=== PATIENT | female | born 1940 | race Caucasian/White ===

== ENCOUNTER 2018-12-24 10:59 | Inpatient (IN) | payer MEDICARE, BC ==
[~2018-12-24] VITALS: Ht 160 cm; Wt 47.8 kg
[2018-12-24] MEDS ORDERED: HYDROMORPHONE INJ 0.5 MG/0.5 ML SYRINGE ONE ×2 (11:25→13:19)
[2018-12-24] MEDS ORDERED: ONDANSETRON HCL/PF 4 MG/2 ML VIAL ONE (11:25)
[2018-12-24] MEDS ORDERED: HYDROMORPHONE INJ 2 MG/ML DISP.SYRIN IV ONE (11:30)
[2018-12-24] MEDS ORDERED: ONDANSETRON HCL/PF 4 MG/2 ML VIAL IVP ONE (11:30)
[2018-12-24] MEDS ORDERED: IV NS 0.9% 500 ML BAG IV ONE (11:30)
--- NOTE | 2018-12-24 11:30 | NUR ---
TIA, FROM HOME, GLF, L LEG SHORTENING, L HIP PAIN 08/27. PT AAOX3, VSS. DENIES CP, SOB, DIZZINESS, N/V, WEAKNESS @ THIS TIME. PLACED ON STRIP PRESSER. DR. ACKERMAN @ BS FOR EVAL. WILL CONT TO MONITOR.
[2018-12-24 11:38] LABS: BASOPHILS % (AUTO) 0.1 % (0.0-2.0); HEMATOCRIT 43 % (33-45); HEMOGLOBIN 14.1 g/dL (11.5-14.8); LYMPHOCYTES # (AUTO) 0.5 /CMM (0.8-4.8); LYMPHOCYTES % (AUTO) 4.2 % (20.0-44.0); MEAN CORPUSCULAR HGB CONC 33 g/dl (31.0-36.0); MEAN CORPUSCULAR VOLUME 94 fL (82-100); MONOCYTES # (AUTO) 0.5 /CMM (0.1-1.30); MONOCYTES % (AUTO) 3.7 % (2.0-12.0); NEUTROPHILS # (AUTO) 11.7 /CMM (1.8-8.9); PLATELET COUNT (AUTO) 157 /CMM (150-450); RED BLOOD CELL COUNT(AUTO) 4.56 MIL/uL (4.0-5.2); WHITE BLOOD COUNT (AUTO) 12.7 K/uL (4.3-11.0)
[2018-12-24 11:44] LABS: CALCIUM, SERUM 9.2 mg/dL (8.5-10.1); CARBON DIOXIDE 29 mmol/L (21-32); CHLORIDE 104 mmol/L (98-107); CREATININE 0.6 mg/dL (0.6-1.3); GLUCOSE 117 mg/dL (74-106); POTASSIUM 3.8 mmol/L (3.5-5.1); SODIUM SERUM 140 mmol/L (136-145); UREA NITROGEN, BLOOD 18 mg/dL (7-18)
[2018-12-24 11:50] LABS: ALANINE AMINOTRANSFERASE 41 U/L (12-78); ALBUMIN 3.4 g/dL (3.4-5.0); ALKALINE PHOSPHATASE 112 U/L (46-116); ASPARTATE AMINOTRANSFERASE 27 U/L (15-37); BILIRUBIN,DIRECT 0.1 mg/dL (0.0-0.2); BILIRUBIN,TOTAL 0.3 mg/dL (0.2-1.0); TOTAL PROTEIN, SERUM 6.7 g/dL (6.4-8.2)
--- NOTE | 2018-12-24 11:55 | NUR ---
MEDICATED FOR PAIN PER ERMD ORDER, PT RODRIGO WELL. AWAITING XRAY.
[2018-12-24] MEDS ORDERED: BENA20TA9 PO (12:19)
[2018-12-24] MEDS ORDERED: OXYB10TA PO (12:19)
[2018-12-24] MEDS ORDERED: LEVO75TA7 PO (12:19)
[2018-12-24] MEDS ORDERED: LEVO50TA8 PO (12:19)
[2018-12-24] MEDS ORDERED: SIMV40TA5 PO (12:19)
--- NOTE | 2018-12-24 13:16 | NUR ---
PAGED EPIC -- FÁTIMA BAIG. WAITING TO CALL US BACK.
--- NOTE | 2018-12-24 13:26 | NUR ---
MEDICATED FOR LT HIP PAIN, PT RODRIGO WELL.
[2018-12-24] MEDS ORDERED: HYDROMORPHONE 1 MG/1 ML DISP.SYRIN IV ONE (13:30)
--- NOTE | 2018-12-24 14:02 | NUR ---
RECEIVED A CALL FROM DAQUAN REECE PT IS GOING TO ROOM [address] [facility].
[2018-12-24 14:21] LABS: APPEARANCE,URINE Clear (CLEAR); BILIRUBIN,URINE Negative (NEGATIVE); BLOOD, URINE Negative Ery/uL (NEGATIVE); COLOR,URINE Yellow (YELLOW); KETONES,URINE 40 (NEGATIVE); LEUKOCYTE ESTERASE ,URINE Negative (NEGATIVE); NITRITE, URINE Negative (NEGATIVE); PROTEIN,URINE Negative (NEGATIVE); UGLUCOSE Negative (NEGATIVE); UROBILINOGEN,URINE 0.2 EU/dL (0.2)
--- NOTE | 2018-12-24 14:25 | NUR ---
CALLED [facility] THIRD TIME
[2018-12-24 14:27] LABS: BACTERIA,URINE None seen /HPF (None Seen); RBC,URINE 0-3 /HPF (0-2); SQUAMOUS EPITHELIAL CELL,UR Few /HPF (None Seen); WBC,URINE 0-2 /HPF (0-3)
--- NOTE | 2018-12-24 14:42 | NUR ---
REPORT GIVEN TO MALINDA LUCIA @ [facility] FOR CONT OF CARE.
--- NOTE | 2018-12-24 15:30 | NUR ---
MS [employer] NOTE PATIENT ADMITTED FROM ER VIA GURNEY, ARRIVED TO THE UNIT ACCOMPANIED BY FAMILY. ALERT ORIENTED X4. ON ROOM AIR TOLERATING WELL. IN NO APPARENT DISTRESS OR DISCOMFORT AT THIS TIME. RESPIRATIONS EVEN AND UNLABORED. REPORTS MINIMAL CARL AT THIS TIME. PATIENT WAS TRANSFERRED TO BED, CLEANED AND MADE COMFORTABLE. INITIAL PHYSICAL ASSESSMENT COMPLETED, SKIN ASSESSMENT COMPLETED, PHOTOS TAKEN PLACED IN CHART. IV ACCESS PRESENT ON RIGHT AC, 20G, SL AT THIS TIME, PATENT AND INTACT. BELONGINGS CHECKED AND DOCUMENTED IN THE CHART. ORIENTED TO ROOM. SAFETY MEASURES IMPLEMENTED. BED IN LOW LOCKED POSITION, SIDE RAILS UP X2, TIANA LIGHT WITHIN EASY REACH. WILL CARRY OUT ADMISSION ORDERS AND CONTINUE TO MONITOR. Addendum: 12/24/18 at 1943 by REA PAUL RN YEE CATHETER IN PLACE, DRAINING CLEAR YELLOW URINE.
[2018-12-24 16:00] VITALS: BP 144/68
[2018-12-24] MEDS ORDERED: ZOLPIDEM TARTRATE 5 MG TABLET PO PRN (16:00)
[2018-12-24] MEDS ORDERED: Z GUARD REMEDY 2 OZ OINT TP PRN (16:00)
[2018-12-24] MEDS ORDERED: ACETAMINOPHEN 325 MG TABLET PO PRN (16:00)
[2018-12-24] MEDS: HYDROMORPHONE INJ 2 MG/ML DISP.SYRIN IV PRN ×2 (16:15→21:53)
[2018-12-24 16:17] VITALS: BP 144/68
[2018-12-24] MEDS: ONDANSETRON HCL/PF 4 MG/2 ML VIAL IVP PRN ×2 (16:46→22:49)
[2018-12-24] MEDS: SIMVASTATIN 40 MG TABLET PO SCH (18:18)
[2018-12-24] MEDS: OXYBUTYNIN CHLORIDE ER 5 MG TAB PO SCH (18:18)
[2018-12-24] MEDS: HYDROCODONE/APAP 10/325MG 1 EA TABLET PO PRN (18:19)
--- NOTE | 2018-12-24 18:30 | NUR ---
PATIENT WAS GIVEN DILAUDID 0.5MG IV AT 1645. STARTED COMPLAINING OF PAIN 05/27 AROUND 1820. PATIENT WAS GIVEN NORCO 10/325 PER PRN ORDER. PATIENT IS IN NO RESPIRATORY DISTRESS RESPIRATIONS EVEN AND UNLABORED WITH 16BEATS/MIN. BP IS 132/64. WILL CONTINUE TO MONITOR AT THIS TIME.
[2018-12-24] MEDS: IV NS 0.9% 1,000 ML IV PRN (18:34)
--- NOTE | 2018-12-24 19:30 | NUR ---
RECEIVED PATIENT IN BED WITH AWAKE. AOX 3, ABLE TO MAKE NEEDS KNOWN. NO ACUTE DISTRESS NOTED. MONITORED FOR PAIN. IV PATENT, INTACT; IVF INFUSING ORDERED. YEE CATH PATENT, INTACT; DRAINING CLEAR YELLOW URINE. SAFETY REMINDERS GIVEN. ON LOW BED WITH BILATERAL UPPER SIDE RAILS UP. CALL NAGEL WITHIN EASY REACH. WILL CONTINUE TO MONITOR. FAMILY AT BEDSIDE.
--- NOTE | 2018-12-24 19:40 | NUR ---
MS RN CLOSING NOTE PATIENT IN BED. ALERT ORIENTED X4. SLIGHTLY FORGETFUL. ON ROOM AIR, TOLERATING WELL. IN NO APPARENT DISTRESS OR DISCOMFORT AT THIS TIME. RESPIRATIONS EVEN AND UNLABORED. DENIES PAIN AND SOB AT THIS TIME. PATIENT IS ABLE TO COMMUNICATE NEEDS. IV ACCESS ON RIGHT AC 20G WITH FLUIDS RUNNING AT 75ML/HR. PATENT AND INTACT. PATIENT WITH YEE CATHETER IN PLACE, DRAINING CLEAR YELLOW URINE. KEPT CLEAN AND COMFORTABLE. ALL NEEDS ATTENDED, SAFETY MEASURES IN PLACE, BED IN LOW LOCKED POSITION, SIDE RAILS UP X2, CALL LIGHT WITHIN EASY REACH. WILL ENDORSE TO PM NURSE FOR CHENTE.
[2018-12-24 20:00] VITALS: BP 115/53
[2018-12-25 06:59] LABS: BASOPHILS % (AUTO) 0.1 % (0.0-2.0); EOSINOPHILS % (AUTO) 0.1 % (0.0-6.0); HEMATOCRIT 39 % (33-45); HEMOGLOBIN 12.9 g/dL (11.5-14.8); LYMPHOCYTES # (AUTO) 0.5 /CMM (0.8-4.8); LYMPHOCYTES % (AUTO) 6.2 % (20.0-44.0); MEAN CORPUSCULAR HGB CONC 33 g/dl (31.0-36.0); MEAN CORPUSCULAR VOLUME 94 fL (82-100); MONOCYTES # (AUTO) 0.4 /CMM (0.1-1.30); MONOCYTES % (AUTO) 4.4 % (2.0-12.0); NEUTROPHILS # (AUTO) 7.9 /CMM (1.8-8.9); NEUTROPHILS % (AUTO) 89.2 % (43.0-81.0); PLATELET COUNT (AUTO) 139 /CMM (150-450); RED BLOOD CELL COUNT(AUTO) 4.14 MIL/uL (4.0-5.2); WHITE BLOOD COUNT (AUTO) 8.8 K/uL (4.3-11.0)
--- NOTE | 2018-12-25 07:00 | NUR ---
PATIENT ASLEEP, AROUSABLE. RESPIRATIONS EVEN. NO SIGNS OF PAIN NOTED. IVF INFUSING ORDERED. KEPT CLEAN, DRY, AND COMFORTABLE. HIP PRECAUTIONS MAINTAINED. SAFETY PRECAUTIONS AND COMFORT MEASURES IN PLACE. WILL GIVE REPORT TO DAY SHIFT FOR CONTINUITY OF CARE.
[2018-12-25 07:12] LABS: ALANINE AMINOTRANSFERASE 31 U/L (12-78); ALBUMIN 2.8 g/dL (3.4-5.0); ALKALINE PHOSPHATASE 88 U/L (46-116); ASPARTATE AMINOTRANSFERASE 19 U/L (15-37); BILIRUBIN,TOTAL 0.4 mg/dL (0.2-1.0); CALCIUM, SERUM 8.7 mg/dL (8.5-10.1); CARBON DIOXIDE 24 mmol/L (21-32); CHLORIDE 106 mmol/L (98-107); CREATININE 0.6 mg/dL (0.6-1.3); GLUCOSE 127 mg/dL (74-106); MAGNESIUM 2.2 mg/dL (1.8-2.4); POTASSIUM 3.6 mmol/L (3.5-5.1); SODIUM SERUM 139 mmol/L (136-145); TOTAL PROTEIN, SERUM 5.9 g/dL (6.4-8.2); UREA NITROGEN, BLOOD 15 mg/dL (7-18)
[2018-12-25 07:16] LABS: CHOLESTEROL 83 mg/dL (<200); HDL CHOLESTEROL 54 mg/dL (40-60); LDL 27 mg/dL (0-99); TRIGLYCERIDES 21 mg/dL (30-150)
--- NOTE | 2018-12-25 07:19 | NUR ---
MS RN OPENING NOTE PATIENT IN BED. ALERT ORIENTED X4. SLIGHTLY FORGETFUL. ON ROOM AIR, TOLERATING WELL. IN NO APPARENT DISTRESS OR DISCOMFORT AT THIS TIME. RESPIRATIONS EVEN AND UNLABORED. DENIES PAIN AND SOB AT THIS TIME. PATIENT IS ABLE TO COMMUNICATE NEEDS. IV ACCESS ON RIGHT AC 20G WITH FLUIDS RUNNING AT 75ML/HR. PATENT AND INTACT. PATIENT WITH YEE CATHETER IN PLACE, DRAINING CLEAR YELLOW URINE. KEPT CLEAN AND COMFORTABLE. ALL NEEDS ATTENDED, SAFETY MEASURES IN PLACE, BED IN LOW LOCKED POSITION, SIDE RAILS UP X2, CALL LIGHT WITHIN EASY REACH. WILL CONTINUE TO MONITOR.
[2018-12-25] MEDS: IV NS 0.9% 1,000 ML IV PRN ×2 (07:34→22:32)
[2018-12-25 08:00] VITALS: BP 113/63
[2018-12-25] MEDS: LEVOTHYROXINE SODIUM 50 MCG TABLET PO SCH (08:47)
[2018-12-25] MEDS: HYDROCODONE/APAP 10/325MG 1 EA TABLET PO PRN ×2 (08:47→14:30)
[2018-12-25] MEDS: BENAZEPRIL HCL 20 MG TABLET PO SCH (08:48)
--- NOTE | 2018-12-25 09:00 | NUR ---
PATIENT REPORTED TO HAVE "HALLUCINATIONS" AFTER RECEIVING DILAUDID LAST NIGHT AND DOES NOT WANT TO TAKE THAT MEDICATION ANYMORE. REPORTED TO DR. CRISTIAN MAYORGA. RECEIVED ORDER TO PUT AN ORDER FOR TORADOL 15MG Q6HR IV NEEDED FOR PAIN MANAGEMENT. NOTED AND CARRIED OUT.
--- NOTE | 2018-12-25 13:22 | NUR ---
PER DR. ROY PATIENT WILL HAVE SX TOMORROW. OK TO FEED TODAY. NPO POST MIDNIGHT. NOTED AND CARRIED OUT.
[2018-12-25] MEDS ORDERED: KETOROLAC TROMETHAMINE INJ 30 MG/ML VIAL IV PRN (13:30)
[2018-12-25 16:00] VITALS: BP 133/68
--- NOTE | 2018-12-25 16:00 | NUR ---
PATIENT REFUSED TO HAVE BED BATH AND HYGIENE CARE PER YESSI ROSADO. SPOKE TO PATIENT WHO REPORTED HAVING PAIN WHEN MOVED AROUND EVEN WITH PAIN MEDICATIONS. STATED THAT SHE PREFERS TO BE LEFT ALONE AT THIS TIME. WILL REATTEMPT AT ANOTHER TIME.
[2018-12-25] MEDS: OXYBUTYNIN CHLORIDE ER 5 MG TAB PO SCH (18:23)
[2018-12-25] MEDS: SIMVASTATIN 40 MG TABLET PO SCH (18:23)
--- NOTE | 2018-12-25 19:04 | NUR ---
MS RN CLOSING NOTE PATIENT IN BED. ALERT ORIENTED X4. GETS EMOTIONAL AT TIMES. ON 2L O2 VIA NC, TOLERATING WELL. IN NO APPARENT DISTRESS OR DISCOMFORT AT THIS TIME. RESPIRATIONS EVEN AND UNLABORED. DENIES PAIN AND SOB AT THIS TIME. PATIENT IS ABLE TO COMMUNICATE NEEDS. PAIN WAS EFFECTIVELY MANAGED DURING MY SHIFT. IV ACCESS ON RIGHT AC 20G WITH FLUIDS RUNNING AT 75ML/HR. PATENT AND INTACT. PATIENT WITH YEE CATHETER IN PLACE, DRAINING CLEAR YELLOW URINE. KEPT CLEAN AND COMFORTABLE. REPOSITIONED PER PROTOCOL MUCH PATIENT ALLOWED. ALL NEEDS ATTENDED, SAFETY MEASURES IN PLACE, BED IN LOW LOCKED POSITION, SIDE RAILS UP X2, CALL LIGHT WITHIN EASY REACH. WILL ENDORSE TO PM NURSE FOR CHENTE.
--- NOTE | 2018-12-25 19:30 | NUR ---
RECEIVED PATIENT IN BED AWAKE. AO X 3, ABLE TO MAKE NEEDS KNOWN. NO ACUTE DISTRESS NOTED. MONITORED FOR PAIN. IV SITE PATENT, INTACT; IVF INFUSING ORDERED. YEE CATH PATENT, INTACT; DRAINING CLEAR YELLOW URINE. SAFETY REMINDERS GIVEN. ON LOW BED WITH BILATERAL UPPER SIDE RAILS UP. CALL NAGEL WITHIN EASY REACH. WILL CONTINUE TO MONITOR. AT BEDSIDE.
[2018-12-25] MEDS: ONDANSETRON HCL/PF 4 MG/2 ML VIAL IVP PRN (19:35)
[2018-12-25 20:00] VITALS: BP 110/47
--- NOTE | 2018-12-26 06:47 | NUR ---
PATIENT ASLEEP, EASILY AROUSABLE. RESPIRATIONS EVEN. NO SIGNS OF PAIN NOTED. KEPT NPO SINCE MIDNIGHT. IVF INFUSING ORDERED. NEEDS ATTENDED. KEPT CLEAN, DRY, AND COMFORTABLE. SAFETY PRECAUTIONS AND COMFORT MEASURES IN PLACE. WILL GIVE REPORT TO DAY SHIFT FOR CONTINUITY OF CARE.
--- NOTE | 2018-12-26 07:00 | NUR ---
MS RN NOTES PATIENT IN BED ALERT ORIENTED X 3. NO ACUTE DISTRESS NOTED. BREATHING UNLABORED. NO SOB NOTED. DENIED ANY PAIN AT THIS TIME. IV ACCESS PATENT AND INTACT, NO REDNESS OR SWELLING NOTED. SAFETY MEASURES IN PLACE. CALL LIGHT WITHIN REACH. WILL CONTINUE TO MONITOR ACCORDINGLY.
[2018-12-26] MEDS: LEVOTHYROXINE SODIUM 75 MCG TABLET PO SCH (07:30)
[2018-12-26 08:00] VITALS: BP 139/71
[2018-12-26] MEDS: BENAZEPRIL HCL 20 MG TABLET PO SCH (09:00)
--- NOTE | 2018-12-26 09:40 | NUR ---
MS RN NOTES PATIENT SEEN BY DR HARLEY ROY, AT BEDSIDE. TRANSPORTED TO OPERATING ROOM WITH STABLE VITAL SIGNS. NO ACUTE DISTRESS NOTED.
[2018-12-26] MEDS ORDERED: BACITRACIN 50000 UNITS/VIAL ONE (09:50)
[2018-12-26] MEDS ORDERED: BUPIVACAINE 0.5 % PF 150 MG/30 ML VIAL ONE (09:50)
[2018-12-26] MEDS ORDERED: MIDAZOLAM HCL 2 MG/2ML VIAL ONE (09:51)
[2018-12-26] MEDS ORDERED: ROCURONIUM BROMIDE 50 MG/5 ML ONE (09:52)
[2018-12-26] MEDS ORDERED: FENTANYL PF 250MCG/5ML AMPUL ONE (09:52)
[2018-12-26] MEDS ORDERED: FENTANYL PF 100MCG/2ML AMPUL ONE (12:30)
--- NOTE | 2018-12-26 13:10 | NUR ---
MS RN NOTES PATIENT CAME BACK FROM RECOVERY ROOM WITH STABLE VITAL SIGNS. NO ACUTE DISTRESS NOTED. BREATHING UNLABORED. WITH NEW ORDERS FROM DR HARLEY ROY, NOTED AND CARRIED OUT.
[2018-12-26 13:31] LABS: BASOPHILS % (AUTO) 0.2 % (0.0-2.0); EOSINOPHILS % (AUTO) 1.4 % (0.0-6.0); HEMATOCRIT 39 % (33-45); HEMOGLOBIN 12.4 g/dL (11.5-14.8); LYMPHOCYTES # (AUTO) 0.7 /CMM (0.8-4.8); LYMPHOCYTES % (AUTO) 6.3 % (20.0-44.0); MEAN CORPUSCULAR HGB CONC 32 g/dl (31.0-36.0); MEAN CORPUSCULAR VOLUME 94 fL (82-100); MONOCYTES # (AUTO) 0.6 /CMM (0.1-1.30); NEUTROPHILS # (AUTO) 9.9 /CMM (1.8-8.9); NEUTROPHILS % (AUTO) 87.1 % (43.0-81.0); PLATELET COUNT (AUTO) 127 /CMM (150-450); RED BLOOD CELL COUNT(AUTO) 4.09 MIL/uL (4.0-5.2); WHITE BLOOD COUNT (AUTO) 11.4 K/uL (4.3-11.0)
[2018-12-26 14:09] LABS: CALCIUM, SERUM 7.8 mg/dL (8.5-10.1); CARBON DIOXIDE 26 mmol/L (21-32); CHLORIDE 110 mmol/L (98-107); CREATININE 0.6 mg/dL (0.6-1.3); GLUCOSE 104 mg/dL (74-106); SODIUM SERUM 143 mmol/L (136-145); UREA NITROGEN, BLOOD 9 mg/dL (7-18)
[2018-12-26] MEDS: HYDROCODONE/APAP 10/325MG 1 EA TABLET PO PRN (14:33)
[2018-12-26 14:43] LABS: THYROID STIMULATING HORMONE 1.309 uIU/mL (0.358-3.74)
--- NOTE | 2018-12-26 14:53 | NUR ---
MS RN NOTES NOTIFIED DR CRISTIAN NORTON REGARDING LABORATORY RESULT FROM THIS AFTERNOON INCLUDING LOW POTASSIUM LEVEL, WITH ORDERS FOR POTASSIUM CHLORIDE 40MEQ PO X 1, NOTED AND CARRIED OUT.
[2018-12-26] MEDS ORDERED: POTASSIUM CHLORIDE 20 MEQ TAB.PRT.SR PO ONE (15:00)
[2018-12-26 16:00] VITALS: BP 123/77
[2018-12-26] MEDS: MORPHINE SULFATE INJ 2 MG/ML DISP.SYRIN IV PRN (17:35)
[2018-12-26] MEDS: OXYBUTYNIN CHLORIDE ER 5 MG TAB PO SCH (18:25)
[2018-12-26] MEDS: SIMVASTATIN 40 MG TABLET PO SCH (18:25)
--- NOTE | 2018-12-26 19:00 | NUR ---
MS RN NOTES PATIENT IN BED ALERT ORIENTED X 3. NO ACUTE DISTRESS NOTED. BREATHING UNLABORED. NO SOB NOTED. VITAL SIGNS MONITORED, REMAINED STABLE ENTIRE SHIFT. IV ACCESS PATENT AND INTACT, NO REDNESS OR SWELLING NOTED. DUE MEDICATIONS GIVEN, NO ASE NOTED.NEEDS ATTENDED AND ANTICIPATED. ABDUCTOR PILLOW IN PLACE. YEE CATHETER INTACT, NO SEDIMENTS NOTED.LEFT HIP SURGICAL DRESSING INTACT, CLEAN AND DRY. SAFETY MEASURES IN PLACE. CALL LIGHT WITHIN REACH. ENDORSED TO NIGHT NURSE FOR CONTINUITY OF CARE.
--- NOTE | 2018-12-26 19:35 | NUR ---
MS RN NOTE RECEIVED PT IN STABLE CONDITION. A&O X3, ABLE TO MAKE NEEDS KNOWN. PT. CURRENTLY IN BED WITH FAMILY AT BEDSIDE. SX SITE INTACT, NO SIGNS OF LEAKAGE OR INFECTION. VS STABLE. NO SIGNS OF SOB OR DISTRESS. NO C/O PAIN. R AC #20 INTACT AND PATENT INFUSING NS@75 ML/HR, TOLERATING WELL. SAFETY PRECAUTIONS IN PLACE: BED LOW, LOCKED, UPPER RAILS UP, AND CALL LIGHT WITHIN REACH. WILL CONT TO MONITOR.
[2018-12-26] MEDS: IV NS 0.9% 1,000 ML IV PRN (19:38)
[2018-12-26] MEDS: CEFAZOLIN 2 GM in IV D5W 50 ML IV SCH (19:53)
[2018-12-26 20:00] VITALS: BP 121/68
[2018-12-26] MEDS: ONDANSETRON HCL/PF 4 MG/2 ML VIAL IVP PRN (21:03)
--- NOTE | 2018-12-26 21:03 | NUR ---
MS RN NOTE PRN ZOFRAN GIVEN FOR C/O NAUSEA. WILL CONT TO MONITOR.
[2018-12-27] MEDS: CEFAZOLIN 2 GM in IV D5W 50 ML IV SCH (03:21)
[2018-12-27] MEDS: MORPHINE SULFATE INJ 2 MG/ML DISP.SYRIN IV PRN (05:10)
--- NOTE | 2018-12-27 05:10 | NUR ---
MS RN NOTE PRN MORPHINE 2 MG GIVEN FOR L HIP PAIN 06/27. WILL CONT TO MONITOR.
[2018-12-27 05:57] LABS: BASOPHILS % (AUTO) 0.1 % (0.0-2.0); EOSINOPHILS % (AUTO) 0.8 % (0.0-6.0); HEMATOCRIT 34 % (33-45); HEMOGLOBIN 11.6 g/dL (11.5-14.8); LYMPHOCYTES # (AUTO) 0.8 /CMM (0.8-4.8); LYMPHOCYTES % (AUTO) 10.7 % (20.0-44.0); MEAN CORPUSCULAR HGB CONC 34 g/dl (31.0-36.0); MEAN CORPUSCULAR VOLUME 93 fL (82-100); MONOCYTES # (AUTO) 0.7 /CMM (0.1-1.30); MONOCYTES % (AUTO) 9.9 % (2.0-12.0); NEUTROPHILS % (AUTO) 78.5 % (43.0-81.0); PLATELET COUNT (AUTO) 132 /CMM (150-450); RED BLOOD CELL COUNT(AUTO) 3.72 MIL/uL (4.0-5.2); WHITE BLOOD COUNT (AUTO) 7.6 K/uL (4.3-11.0)
[2018-12-27 06:11] LABS: CARBON DIOXIDE 28 mmol/L (21-32); CHLORIDE 108 mmol/L (98-107); CREATININE 0.7 mg/dL (0.6-1.3); GLUCOSE 113 mg/dL (74-106); PHOSPHORUS 1.8 mg/dL (2.5-4.9); POTASSIUM 3.7 mmol/L (3.5-5.1); SODIUM SERUM 140 mmol/L (136-145); UREA NITROGEN, BLOOD 12 mg/dL (7-18)
--- NOTE | 2018-12-27 06:16 | NUR ---
MS RN NOTE PT IN STABLE CONDITION. A&O X3, ABLE TO MAKE NEEDS KNOWN. PT. CURRENTLY IN BED, RESTING EASY TO AROUSE. SX SITE INTACT, NO SIGNS OF LEAKAGE OR INFECTION. VS STABLE. NO SIGNS OF SOB OR DISTRESS. PAIN MANAGED ORDERED BY MD. Serrano AC #20 INTACT AND PATENT INFUSING NS@75 ML/HR, TOLERATING WELL. SAFETY PRECAUTIONS IN PLACE: BED LOW, LOCKED, UPPER RAILS UP, AND CALL LIGHT WITHIN REACH. WILL CONT TO MONITOR AND ENDORSE TO NEXT SHIFT FOR CHENTE.
--- NOTE | 2018-12-27 07:40 | NUR ---
MS RN OPENING NOTES RECEIVED PT LAYING IN BED, RESTING COMFORTABLY. A/O X4. RESPIRATIONS ARE EVEN AND UNLABORED, NOT IN ANY ACUTE DISTRESS NOTED. PT DENIES ANY PAIN AT THIS TIME, NO C/O SOB, N/V. IV SITE TO RAC INTACT, NO INFILTRATION NOTED. DRESSING KEPT CLEAN AND DRY. SAFETY MEASURES ARE IN PLACE. INSTRUCTED PT TO USE CALL LIGHT WHEN ASSISTANCE IS NEEDED, CALL LIGHT IS LEFT WITHIN REACH. WILL MONITOR THROUGHOUT SHIFT FOR CONTINUITY OF CARE.
[2018-12-27 08:00] VITALS: BP 105/59
[2018-12-27] MEDS: BENAZEPRIL HCL 20 MG TABLET PO SCH (08:08)
[2018-12-27] MEDS: LEVOTHYROXINE SODIUM 50 MCG TABLET PO SCH (08:08)
[2018-12-27] MEDS: NEUTRA PHOS 1 POWD.PACKET PO SCH ×2 (09:27→17:39)
[2018-12-27] MEDS: HYDROCODONE/APAP 10/325MG 1 EA TABLET PO PRN ×2 (10:03→15:01)
--- NOTE | 2018-12-27 10:30 | NUR ---
MS RN NOTES-- PT SEEN AND EXAMINED BY DR. GUZMAN.
[2018-12-27] MEDS: IV NS 0.9% 1,000 ML IV PRN (12:02)
[2018-12-27] MEDS: ENOXAPARIN SODIUM 40 MG/0.4 ML DISP.SYRIN SQ SCH (12:03)
[2018-12-27 16:00] VITALS: BP 113/63
[2018-12-27] MEDS ORDERED: K PHOS NEUTRAL 250 MG TABLET PO ONE (17:00)
[2018-12-27] MEDS: OXYBUTYNIN CHLORIDE ER 5 MG TAB PO SCH (17:39)
[2018-12-27] MEDS: SIMVASTATIN 40 MG TABLET PO SCH (17:39)
[2018-12-27] MEDS ORDERED: MAGNESIUM HYDROXIDE 30 ML UDC PO PRN (18:00)
--- NOTE | 2018-12-27 18:48 | NUR ---
MS RN CLOSING NOTES ALL DUE MEDS GIVEN, NEEDS MET AND ANTICIPATED. PT IS A/O X2-3, AFEBRILE. RESPIRATIONS ARE EVEN AND UNLABORED, NOT IN ANY ACUTE DISTRESS NOTED. DENIES ANY PAIN AT THIS TIME, NO C/O SOB, N/V. REEDUCATED PT ON USE OF INCENTIVE SPIROMETER AND ABLE TO PERFORM RETURN DEMONSTRATION. YEE CATH REMOVED AND IS ABLE TO VOID X1 IN DIAPER. IV SITE INTACT, NO INFILTRATION NOTED. DRESSING KEPT CLEAN AND DRY. IV FLUIDS RUNNING @75ML/HR, TOLERATING WELL. SAFETY MEASURES ARE IN PLACE. FAMILY AT BEDSIDE. WILL ENDORSE TO NEXT SHIFT FOR CONTINUITY OF CARE.
--- NOTE | 2018-12-27 19:35 | NUR ---
RN MS OPENING NOTES RECEIVED PATIENT IN BED AWAKE. FAMILY AT BEDSIDE. PATIENT IS ALERT AND ORIENTED X3, VERBALLY RESPONSIVE, ABLE TO MAKE NEEDS KNOWN. BREATHING EVEN AND UNLABORED. NO SOB NOTED. CURRENTLY WITH NO COMPLAINTS OF PAIN OR DISCOMFORT. NO FACIAL GRIMACING. IV ON RIGHT AC #20 INTACT AND PATENT WITH NS RUNNING AT 75ML/HR. SKIN DRY AND WARM TO TOUCH. AFEBRILE. ALL OTHER NEEDS ATTENDED TO. SAFETY MEASURES IN PLACE. CALL LIGHT WITHIN REACH. WILL CONTINUE TO MONITOR.
[2018-12-27 20:04] VITALS: BP 111/65
[2018-12-28] MEDS: IV NS 0.9% 1,000 ML IV PRN (02:15)
--- NOTE | 2018-12-28 07:08 | NUR ---
RN MS CLOSING NOTES PATIENT IN BED AWAKE. NO ACUTE CHANGES THROUGHOUT SHIFT. BREATHING EVEN AND UNLABORED. NO SOB NOTED. CURRENTLY WITH NO COMPLAINTS OF PAIN OR DISCOMFORT. NO FACIAL GRIMACING. IV ON RIGHT AC #20 INTACT AND PATENT WITH NS RUNNING AT 75ML/HR. SKIN DRY AND WARM TO TOUCH. AFEBRILE. ALL OTHER NEEDS ATTENDED TO. SAFETY MEASURES IN PLACE. CALL LIGHT WITHIN REACH. WILL ENDORSE TO ONCOMING NURSE FOR CHENTE.
--- NOTE | 2018-12-28 07:30 | NUR ---
MS RN NOTES PATIENT RESTING INSIDE ROOM. AWAKE, ALERT AND ORIENTED, VERBALLY RESPONSIVE AND RESPONDS TO VERBAL AND TACTILE STIMULI. DENIES AND PAIN OR DISCOMFORT. BREATHING EVEN AND UNLABORED. NO CHANGES IN LOC NOTED AT THIS TIME. PATIENT CALM AND RELAXED. CONTINUE WBAT ON LLE. ABDUCTOR PILLOW IN PLACE. WILL CONTINUE TO MONITOR. BED LOCKED AND IN LOW POSITION. BILATERAL UPPER SIDE RAILS UP AND LOCKED. CALL LIGHT WITHIN EASY REACH
[2018-12-28 08:00] VITALS: BP 118/61
[2018-12-28 08:13] LABS: BASOPHILS % (AUTO) 0.2 % (0.0-2.0); EOSINOPHILS % (AUTO) 1.9 % (0.0-6.0); HEMATOCRIT 30 % (33-45); LYMPHOCYTES # (AUTO) 0.9 /CMM (0.8-4.8); LYMPHOCYTES % (AUTO) 11.4 % (20.0-44.0); MEAN CORPUSCULAR HGB CONC 34 g/dl (31.0-36.0); MEAN CORPUSCULAR VOLUME 93 fL (82-100); MONOCYTES # (AUTO) 0.7 /CMM (0.1-1.30); MONOCYTES % (AUTO) 8.6 % (2.0-12.0); NEUTROPHILS # (AUTO) 6.2 /CMM (1.8-8.9); NEUTROPHILS % (AUTO) 77.9 % (43.0-81.0); PLATELET COUNT (AUTO) 111 /CMM (150-450); RED BLOOD CELL COUNT(AUTO) 3.18 MIL/uL (4.0-5.2); WHITE BLOOD COUNT (AUTO) 7.9 K/uL (4.3-11.0)
[2018-12-28 08:26] LABS: CALCIUM, SERUM 8.5 mg/dL (8.5-10.1); CARBON DIOXIDE 31 mmol/L (21-32); CHLORIDE 107 mmol/L (98-107); CREATININE 0.5 mg/dL (0.6-1.3); GLUCOSE 96 mg/dL (74-106); PHOSPHORUS 1.7 mg/dL (2.5-4.9); POTASSIUM 3.6 mmol/L (3.5-5.1); SODIUM SERUM 142 mmol/L (136-145); UREA NITROGEN, BLOOD 11 mg/dL (7-18)
[2018-12-28] MEDS: LEVOTHYROXINE SODIUM 50 MCG TABLET PO SCH (08:45)
[2018-12-28] MEDS: BENAZEPRIL HCL 20 MG TABLET PO SCH (08:46)
[2018-12-28] MEDS: LEVOTHYROXINE SODIUM 75 MCG TABLET PO SCH (08:56)
--- NOTE | 2018-12-28 09:30 | NUR ---
MS RN NOTES PATIENT SEEN AND EXAMINED BY ADONIS BONNER. DRESSING CHANGED DONE ON LEFT HIP. NOTED SITE WITH BLOOD, NO ACTIVE BLEEDING NOTED. PATIENT TOLERATED PROCEDURE WELL. PER IZAEBLLA COHN, LULÚ TO GIVE LOVENOX ORDERED. PATIENT AWARE AND VERBALIZED UNDERSTANDING. WILL CONTINUE TO MONITOR
[2018-12-28] MEDS: ENOXAPARIN SODIUM 40 MG/0.4 ML DISP.SYRIN SQ SCH (13:29)
[2018-12-28] MEDS ORDERED: K PHOS NEUTRAL 250 MG TABLET PO ONE (13:30)
[2018-12-28] MEDS: HYDROCODONE/APAP 10/325MG 1 EA TABLET PO PRN (14:07)
[2018-12-28 16:00] VITALS: BP 104/54
[2018-12-28] MEDS: OXYBUTYNIN CHLORIDE ER 5 MG TAB PO SCH (17:17)
[2018-12-28] MEDS: SIMVASTATIN 40 MG TABLET PO SCH (17:17)
--- NOTE | 2018-12-28 18:48 | NUR ---
MS RN NOTES PATIENT RESTING INSIDE ROOM. AWAKE, ALERT AND ORIENTED. VERBALLY RESPONSIVE AND RESPONDS TO VERBAL AND TACTILE STIMULI. BREATHING EVEN AND UNLABORED. NO ACUTE DISTRESS NOTED AT THIS TIME. ABDUCTOR PILLOW IN PLACE. BILATERAL SCDs IN PLACE. CONTINUE WBAT ON LLE. PATIENT DENIES ANY PAIN OR DISCOMFORT. WILL ENDORSE TO INCOMING SHIFT FOR CHENTE. BED LOCKED AND IN LOW POSITION. BILATERAL UPPER SIDE RAILS UP AND LOCKED. CALL LIGHT WITHIN EASY REACH
--- NOTE | 2018-12-28 19:30 | NUR ---
RECEIVED PATIENT IN BED AWAKE, AO X 3, ABLE TO MAKE NEEDS KNOWN. NO ACUTE DISTRESS NOTED. MONITORED FOR PAIN. IV SITE PATENT, INTACT; IVF INFUSING ORDERED. LEFT HIP DRESSING INTACT. SAFETY REMINDERS GIVEN. ON LOW BED WITH BILATERAL UPPER SIDE RAILS UP. CALL NAGEL WITHIN EASY REACH. WILL CONTINUE TO MONITOR.
[2018-12-28 20:00] VITALS: BP 106/56
[2018-12-29] MEDS: IV NS 0.9% 1,000 ML IV PRN (01:45)
[2018-12-29] MEDS: HYDROCODONE/APAP 10/325MG 1 EA TABLET PO PRN (06:15)
--- NOTE | 2018-12-29 06:51 | NUR ---
PATIENT ASLEEP, EASILY AROUSABLE. RESPIRATIONS EVEN. NO SIGNS OF PAIN NOTED. IVF INFUSING ORDERED. NEEDS ATTENDED. KEPT CLEAN, DRY, AND COMFORTABLE. ABDUCTOR PILLOW IN PLACE. LEFT HIP DRESSING INTACT. SAFETY PRECAUTIONS AND COMFORT MEASURES IN PLACE. WILL GIVE REPORT TO DAY SHIFT FOR CONTINUITY OF CARE.
[2018-12-29 07:06] LABS: CALCIUM, SERUM 8.3 mg/dL (8.5-10.1); CARBON DIOXIDE 30 mmol/L (21-32); CHLORIDE 107 mmol/L (98-107); CREATININE 0.5 mg/dL (0.6-1.3); GLUCOSE 94 mg/dL (74-106); PHOSPHORUS 1.9 mg/dL (2.5-4.9); POTASSIUM 3.7 mmol/L (3.5-5.1); SODIUM SERUM 142 mmol/L (136-145); UREA NITROGEN, BLOOD 12 mg/dL (7-18)
--- NOTE | 2018-12-29 07:21 | NUR ---
MS RN NOTES PATIENT RECEIVED RESTING INSIDE ROOM, SLEEPING, EASILY AROUSABLE THROUGH VERBAL AND TACTILE STIMULI. BREATHING EVEN AND UNLABORED. NO ACUTE DISTRESS. DENIES ANY PAIN OR DISCOMFORT AT THIS TIME. ABDUCTOR PILLOW IN PLACE. PATIENT CALM AND RELAXED. IVF RUNNING ORDERED. WILL CONTINUE TO MONITOR. BED LOCKED AND IN LOW POSITION. BILATERAL UPPER SIDE RAILS UP AND LOCKED. CALL LIGHT WITHIN EASY REACH
[2018-12-29] MEDS: LEVOTHYROXINE SODIUM 50 MCG TABLET PO SCH (08:10)
[2018-12-29] MEDS: BENAZEPRIL HCL 20 MG TABLET PO SCH (08:10)
[2018-12-29] MEDS ORDERED: NEUTRA PHOS 1 POWD.PACKET PO SCH ×2 (09:00→15:00)
[2018-12-29 09:52] VITALS: BP 106/61
[2018-12-29] MEDS: ENOXAPARIN SODIUM 40 MG/0.4 ML DISP.SYRIN SQ SCH (12:04)
--- NOTE | 2018-12-29 13:00 | NUR ---
MS RN NOTES PATIENT FOR DISCHARGE, TO DISCHARGE TO [facility]. PATIENT AND SCOTT () AT BEDSIDE MADE AWARE AND VERBALIZED UNDERSTANDING. PLACED CALL TO [facility] AND SPOKE WITH RUTHIE PETTY AND GAVE REPORT.
[2018-12-29] MEDS ORDERED: NEUTRA PHOS 1 POWD.PACKET PO ONE (15:00)
[2018-12-29] MEDS ORDERED: ACET325T53 PO (15:01)
[2018-12-29] MEDS ORDERED: Hydrocodone/Apap 10/325MG PO (15:01)
--- NOTE | 2018-12-29 15:38 | NUR ---
MS RN NOTES PATIENT FOR DISCHARGE TODAY. TO TRANSFER TO [facility]. ALL BELONGINGS COMPLETE ON DISCHARGE, NO REPORT OF MISSING INVENTORY. PER SCOTT, HE HAS PATIENT'S HEARING AIDS AND PATIENT'S RING WITH HIM. IV REMOVED WITH MINIMAL BLEEDING NOTED ON SITE, PRESSURE DRESSING PLACED. PATIENT LEFT UNIT AT 1530 IN STABLE CONDITION VIA GURNEY. NO ACUTE DISTRESS. NO CHANGES IN LOC NOTED .PATIENT BREATHING EVEN AND UNLABORED. MD AWARE OF DISCHARGE
== END 2018-12-29 15:37 | DRG 470 ==
LOC: ER 11:00 → MEDSG2 14:14 → MED 12-28 12:09
PROVIDERS: ADMIT Nurse Practitioner Acute Care; ATTEND Nurse Practitioner Acute Care
PROC: 0SRS0J9 Replacement of Left Hip Joint, Femoral Surface with Synthetic Substitute, Cemented, Open Approach (ICD-10-PCS; principal; 2018-12-26)
DX: S72.002A Fracture of unspecified part of neck of left femur, initial encounter for closed fracture (principal); E78.5 Hyperlipidemia, unspecified; I10 Essential (primary) hypertension; D72.829 Elevated white blood cell count, unspecified; N32.81 Overactive bladder; I25.10 Atherosclerotic heart disease of native coronary artery without angina pectoris; W01.0XXA Fall on same level from slipping, tripping and stumbling without subsequent striking against object, initial encounter; Y93.K1 Activity, walking an animal; Y92.9 Unspecified place or not applicable; Z95.5 Presence of coronary angioplasty implant and graft; I25.2 Old myocardial infarction; Z88.5 Allergy status to narcotic agent; Z88.0 Allergy status to penicillin; Z79.899 Other long term (current) drug therapy; R00.1 Bradycardia, unspecified
CPT/HCPCS: 36415; 71045-TC; 72170-TC; 73502; 73552; 80048-TC; 80053-TC; 80061-TC; 80076-TC; 81000-TC; 83735-TC; 84100-TC; 84439-TC; 84443-TC; 85025-TC; 85730-TC; 86850-TC; 87081-TC; 88305-TC; 88311-TC; 93307-TC; 94799-TC; 97110-TC; 97116-TC; 97530-TC; A4217; A6402; C1713; G0378; J0690; J1170; J1650; J2250; J2270; J2405; J2704; J2710; J3010; J3490; J7030; J7040; J7060